=== PATIENT | male | born 1990 | race Caucasian/White ===

== ENCOUNTER 2018-02-12 10:03 | Day surgery (SDC) | payer OTHER ==
[2018-02-12] MEDS ORDERED: NS 1,000 ML IV ONE ×2 (10:35→10:54)
[2018-02-12 10:52] LABS: PLATELET COUNT 281 10^3/uL (150-400)
--- NOTE | 2018-02-12 10:54 | EDPHY ---
HPI/HX/ROS/PE/MDM Narrative: CHIEF COMPLAINT: "Stomach pain, fever, and nausea" HPI: The patient is a 27 y/o male arriving with his friend complaining of waxing and waning RLQ abdominal pain for the last 3 days. He initially noticed abdominal pain that seemed to worsen over the first 24 hours before subsiding slightly. He has associated subjective fever, chills, and nausea. He denies vomiting, diarrhea, dyspnea, chest pain, recent illness, or recent trauma. He had a double hernia repair as , but otherwise denies surgical history. His last PO intake was a smoothie and muffin at 08:00, 3 hours ago. REVIEW OF SYSTEMS: Aside from elements discussed in the HPI, a comprehensive 10-point review of systems was reviewed and is negative. PMH: Double hernia repair as infant. 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 Friend at bedside. PHYSICAL EXAM: General:Patient is alert, in no acute distress. ENT:Eyes are normal to inspection. ENT inspection normal. Neck: Normal inspection. Full range of motion. Respiratory:No respiratory distress. Breath sounds normal bilaterally. Cardiovascular: Regular rate and rhythm. Strong peripheral pulses. Normal cap refill. Abdomen:The abdomen has moderate RLQ tenderness to palpation. There are no peritoneal signs. Back: Normal to inspection. No tenderness to palpation. Skin: Normal color. No rash. Warm and dry. Extremities: Normal appearance. Full range of motion. Neuro: Oriented x3. Normal motor function. Normal sensory function. ED Course: This is a healthy 27 y/o male who presents with 3 days of waxing and waning RLQ abdominal pain with associated nausea and subjective fever. He has RLQ tenderness on exam and is hemodynamically stable. Presentation concerning for acute appendicitis. Plan for IV, labs, UA, and abdominal CT. 1L IV NS ordered. Patient declined pain and nausea medication. Labs unremarkable. Abdominal CT: acute appendicitis Consulted with Dr. Gottlieb, surgeon. He will assess patient in the ED. MDM: This patient presents with signs and symptoms of acute appendicitis, confirmed by CT. He will require surgical intervention. - Data Points Imaging: Discussed imaging studies w/ call center agent Radiologist, I viewed and interpreted images myself Laboratory Results: Laboratory Results 02/12/18 10:25 02/12/18 10:25 02/12/18 02/12/18 10:25 10:25 WBC 4.91 10^3/uL 10^3/uL (3.80-9.50) RBC 6.01 10^6/uL 10^6/uL (4.40-6.38) Hgb 16.9 g/dL g/dL (13.7-17.5) Hct 49.5 % % (40.0-51.0) MCV 82.4 fL fL (81.5-99.8) MCH 28.1 pg pg (27.9-34.1) MCHC 34.1 g/dL g/dL (32.4-36.7) RDW 13.5 % % (11.5-15.2) Plt Count 281 10^3/uL 10^3/uL (150-400) MPV 11.2 fL fL (8.7-11.7) Neut % (Auto) 50.7 % % (39.3-74.2) Lymph % (Auto) 36.7 % % (15.0-45.0) [place] % (Auto) 9.4 % % (4.5-13.0) Eos % (Auto) 1.6 % % (0.6-7.6) Baso % (Auto) 1.0 % % (0.3-1.7) Nucleat RBC Rel Count 0.0 % % (0.0-0.2) Absolute Neuts (auto) 2.49 10^3/uL 10^3/uL (1.70-6.50) Absolute Lymphs (auto) 1.80 10^3/uL 10^3/uL (1.00-3.00) Absolute Monos (auto) 0.46 10^3/uL 10^3/uL (0.30-0.80) Absolute Eos (auto) 0.08 10^3/uL 10^3/uL (0.03-0.40) Absolute Basos (auto) 0.05 10^3/uL 10^3/uL (0.02-0.10) Absolute Nucleated RBC 0.00 10^3/uL 10^3/uL (0-0.01) Immature Gran % 0.6 % % (0.0-1.1) Immature Gran # 0.03 10^3/uL 10^3/uL (0.00-0.10) Sodium 146 mEq/L H mEq/L (135-145) Potassium 4.1 mEq/L mEq/L (3.5-5.2) Chloride 103 mEq/L mEq/L (97-110) Carbon Dioxide 27 mEq/l mEq/l (22-31) Anion Gap 16 mEq/L mEq/L (8-16) BUN 14 mg/dL mg/dL (7-23) Creatinine 0.8 mg/dL mg/dL (0.7-1.3) Estimated GFR > 60 Glucose 81 mg/dL mg/dL (70-100) Calcium 9.7 mg/dL mg/dL (8.5-10.4) General Time Seen by Provider: 02/12/18 10:41 Initial Vital Signs: Initial Vital Signs Temperature (C) 36.7 C 02/12/18 10:05 Heart Rate 76 02/12/18 10:05 Respiratory Rate 16 02/12/18 10:05 Blood Pressure 120/77 02/12/18 10:05 O2 Sat (%) 96 02/12/18 10:05 O2 Delivery Mode Room Air O2 (L/minute) 6 Allergies/Adverse Reactions: No Known Allergies Allergy (Verified 10/30/13 12:06) Home Medications: Medication Instructions Recorded Albuterol [Proventil Inhaler HFA 1 - 2 puffs IH DAILY PRN 02/12/18 (*)] Hydrocodone/APAP 5/325 [[place] 1 tab PO Q4HRS PRN #20 tab 02/12/18 5/325 (*)] Ibuprofen [Motrin (*)] 600 mg PO Q8HRS #30 tab 02/12/18 Departure - Departure Disposition: [facility] Inpatient Acute Clinical Impression: Acute appendicitis Qualifiers: Acute appendicitis type: other Qualified Code(s): K35.89 - Other acute appendicitis Condition: Good Report Scribed for: Alvarado Garcia Report Scribed by: Fozia Gonzalez Date of Report: 02/12/18 Time of Report: 10:55 Physician Review and Approval Statement: Portions of this note were transcribed by an ED scribe. I personally performed the history, physical exam, and medical decision making; and confirm the accuracy of the information in the transcribed note.
[2018-02-12] MEDS ORDERED: IOPAMIDOL (ISOVUE-300) 100 ML BTL ONE (11:09)
--- NOTE | 2018-02-12 12:28 | PDGENHP ---
History and Physical - Chief Complaint abd pain - History of Present Illness 27 y/o male with 2 day history of RLQ pain, fever, chills and nausea. He came to the ED today and was seen by Dr. Garcia who suspected appendicitis and confirmed with a CT of the abdomen. History Information - Allergies/Home Medication List Allergies/Adverse Reactions: No Known Allergies Allergy (Verified 10/30/13 12:06) Home Medications: Albuterol [Proventil Inhaler HFA (*)] 1 - 2 puffs IH DAILY PRN 02/12/18 [Last Taken Unknown] I have personally reviewed and updated: family history, medical history, social history, surgical history - Past Medical History no pertinent PMH - Surgical History Reports: hernia repair (bilateral inguinal hernia repair as a child) - Social History Smoking Status: Never smoked Alcohol Use: Occasionally Drug Use: None Review of Systems Review of Systems: Constitutional: Reports: chills, fever Cardiac: Reports: no symptoms Respiratory: Reports: no symptoms Gastrointestinal: Reports: abdominal pain, nausea Genitourinary: Reports: no symptoms Physical Exam Physical Exam: Temp Pulse Resp BP Pulse Ox 36.7 C 76 16 120/77 96 02/12/18 10:05 02/12/18 10:05 02/12/18 10:05 02/12/18 10:05 02/12/18 10:05 Constitutional: no apparent distress Eyes: anicteric sclera, other Ears, Nose, Mouth, Throat: other (no adenopathy) Cardiovascular: regular rate and rhythym Respiratory: no respiratory distress, no rales or rhonchi, clear to auscultation Gastrointestinal: normoactive bowel sounds, tenderness (RLQ tenderness with guarding, +Rovsing's sign) Genitourinary: no bladder fullness Skin: warm Neurologic: AAOx3 Lab Data & Imaging Review 02/12/18 10:25 02/12/18 10:25 WBC 4.91 10^3/uL (3.80-9.50) 02/12/18 10:25 RBC 6.01 10^6/uL (4.40-6.38) 02/12/18 10:25 Hgb 16.9 g/dL (13.7-17.5) 02/12/18 10:25 Hct 49.5 % (40.0-51.0) 02/12/18 10:25 MCV 82.4 fL (81.5-99.8) 02/12/18 10:25 MCH 28.1 pg (27.9-34.1) 02/12/18 10:25 MCHC 34.1 g/dL (32.4-36.7) 02/12/18 10:25 RDW 13.5 % (11.5-15.2) 02/12/18 10:25 Plt Count 281 10^3/uL (150-400) 02/12/18 10:25 MPV 11.2 fL (8.7-11.7) 02/12/18 10:25 Neut % (Auto) 50.7 % (39.3-74.2) 02/12/18 10:25 Lymph % (Auto) 36.7 % (15.0-45.0) 02/12/18 10:25 [place] % (Auto) 9.4 % (4.5-13.0) 02/12/18 10:25 Eos % (Auto) 1.6 % (0.6-7.6) 02/12/18 10:25 Baso % (Auto) 1.0 % (0.3-1.7) 02/12/18 10:25 Nucleat RBC Rel Count 0.0 % (0.0-0.2) 02/12/18 10:25 Absolute Neuts (auto) 2.49 10^3/uL (1.70-6.50) 02/12/18 10:25 Absolute Lymphs (auto) 1.80 10^3/uL (1.00-3.00) 02/12/18 10:25 Absolute Monos (auto) 0.46 10^3/uL (0.30-0.80) 02/12/18 10:25 Absolute Eos (auto) 0.08 10^3/uL (0.03-0.40) 02/12/18 10:25 Absolute Basos (auto) 0.05 10^3/uL (0.02-0.10) 02/12/18 10:25 Absolute Nucleated RBC 0.00 10^3/uL (0-0.01) 02/12/18 10:25 Immature Gran % 0.6 % (0.0-1.1) 02/12/18 10:25 Immature Gran # 0.03 10^3/uL (0.00-0.10) 02/12/18 10:25 Sodium 146 mEq/L (135-145) H 02/12/18 10:25 Potassium 4.1 mEq/L (3.5-5.2) 02/12/18 10:25 Chloride 103 mEq/L (97-110) 02/12/18 10:25 Carbon Dioxide 27 mEq/l (22-31) 02/12/18 10:25 Anion Gap 16 mEq/L (8-16) 02/12/18 10:25 BUN 14 mg/dL (7-23) 02/12/18 10:25 Creatinine 0.8 mg/dL (0.7-1.3) 02/12/18 10:25 Estimated GFR > 60 02/12/18 10:25 Glucose 81 mg/dL (70-100) 02/12/18 10:25 Calcium 9.7 mg/dL (8.5-10.4) 02/12/18 10:25 Urine Color PALE YELLOW 02/12/18 11:50 Urine Appearance CLEAR 02/12/18 11:50 Urine pH 7.0 (5.0-7.5) 02/12/18 11:50 Ur Specific Martha 1.018 (1.002-1.030) 02/12/18 11:50 Urine Protein NEGATIVE (NEGATIVE) 02/12/18 11:50 Urine Ketones NEGATIVE (NEGATIVE) 02/12/18 11:50 Urine Blood NEGATIVE (NEGATIVE) 02/12/18 11:50 Urine Nitrate NEGATIVE (NEGATIVE) 02/12/18 11:50 Urine Bilirubin NEGATIVE (NEGATIVE) 02/12/18 11:50 Urine Urobilinogen NEGATIVE EU (0.2-1.0) 02/12/18 11:50 Ur Leukocyte Esterase NEGATIVE (NEGATIVE) 02/12/18 11:50 Urine Glucose NEGATIVE (NEGATIVE) 02/12/18 11:50 Assessment & Plan Assessment: Acute appendicitis (Acute) Plan: We discussed laparoscopic appendectomy and the alternative of antibiotic treatment alone. I recommended appendectomy. We discussed the procedure, expected recovery and risks. He would like to proceed with appenectomy. Ertapenam 1 gm IVPB pre-op ordered
[2018-02-12] MEDS ORDERED: LR 1,000 ML IV SCH (12:30)
[2018-02-12] MEDS ORDERED: ERTAPENEM 1 GM VIAL ONE (12:30)
[2018-02-12] MEDS ORDERED: ERTAPENEM 1 GM VIAL IV SCH (12:30)
[2018-02-12] MEDS ORDERED: LR 1,000 ML IV ONE (12:58)
[2018-02-12] MEDS ORDERED: BUPIVACAINE 0.25% 30 ML SDV ONE (13:34)
[2018-02-12] MEDS ORDERED: MIDAZOLAM 2 MG/2 ML VIAL IVP ONE (13:41)
--- NOTE | 2018-02-12 13:41 | PDANEPAE ---
ANE History of Present Illness 27 yo for glen SEGUN Past Medical History - Cardiovascular History Hx Hypertension: No Hx Arrhythmias: No Hx Chest Pain: No Hx Coronary Artery / Peripheral Vascular Disease: No Hx CHF / Valvular Disease: No Hx Palpitations: No - Pulmonary History Hx COPD: No Hx Recent Upper Respiratory Infection: No Hx Oxygen in Use at Home: No Hx Sleep Apnea: No - Endocrine History Hx Diabetes: No ANE Review of Systems Review of Systems: - Exercise capacity METS (RN): 4 METS ANE Patient History - Allergies Allergies/Adverse Reactions: No Known Allergies Allergy (Verified 10/30/13 12:06) - Home Medications Home medications: home medication list seen and reviewed Home Medications: Albuterol [Proventil Inhaler HFA (*)] 1 - 2 puffs IH DAILY PRN 02/12/18 [Last Taken Unknown] - NPO status NPO Since - Liquids (Date): 02/12/18 NPO Since - Liquids (Time): 09:00 NPO Since - Solids (Date): 02/13/16 NPO Since - Solids (Time): 08:00 - Anes Hx Anes Hx: no prior problems - Smoking Hx Smoking Status: Never smoked - Alcohol Use Alcohol Use: Occasionally ANE Labs/Vital Signs - Labs Result Diagrams: 02/12/18 10:25 02/12/18 10:25 - Vital Signs Blood Pressure: 100/60 Heart Rate: 74 Respiratory Rate: 18 O2 Sat (%): 97 Height: 6 ft 1 in Weight: 72.575 kg ANE Physical Exam - Airway Mallampati Score: Class 2 Mouth exam: normal dental/mouth exam - Pulmonary Pulmonary: no respiratory distress - Cardiovascular Cardiovascular: regular rate and rhythym - ASA Status ASA Status: I ANE Anesthesia Plan Anesthesia Plan: general endotracheal anesthesia
[2018-02-12] MEDS ORDERED: PROPOFOL/EMULSION 500 MG/50 ML BOTTLE IV ONE (13:48)
[2018-02-12] MEDS ORDERED: REMIFENTANIL HCL 1 MG VIAL ONE (13:48)
[2018-02-12] MEDS ORDERED: fentaNYL 100 MCG/2 ML INJ ONE ×2 (13:48→15:11)
[2018-02-12] MEDS ORDERED: METOCLOPRAMIDE 10 MG/2 ML VIAL IVP PRN (15:04)
[2018-02-12] MEDS ORDERED: HYDROCODONE/APAP 5/325 TAB PO PRN (15:04)
--- NOTE | 2018-02-12 15:04 | POSTOPPROG ---
Post Op Note Date of Operation: 02/12/18 Surgeon: Braden Gottlieb (, FACS) Anesthesiologist: Liborio Clifton MD Anesthesia: GET(General Endotracheal) Pre-op Diagnosis: appendicitis Post-op Diagnosis: same Procedure: lap appendectomy Findings: acute appendicitis Inf/Abcess present in the surg proc area at time of surgery?: Yes Depth: Organ Space EBL: Minimal (5 ml) Complications: none\ Specimen(s): appendix
[2018-02-12] MEDS ORDERED: ALBUTEROL 60 PUFFS/8 GM MDI IH PRN (15:06)
[2018-02-12] MEDS ORDERED: ONDANSETRON 4 MG/2 ML VIAL IVP PRN (15:07)
[2018-02-12] MEDS ORDERED: HYDROmorphONE/DILAUDID 2 MG/ML INJ IVP PRN (15:07)
[2018-02-12] MEDS ORDERED: NALOXONE HCL 0.4 MG/ML INJ IVP PRN (15:07)
--- NOTE | 2018-02-12 15:08 | POSTANESTH ---
Post Anesthetic Evaluation Cardiovascular Status: Normal, Stable Respiratory Status: Normal, Stable Level of Consciousness/Mental Status: Can Participate in Eval Pain Control: Adequate, Prn Tx Ordered Nausea/Vomiting Control: Adequate, Prn Tx Ordered Complications Possibly Related to Anesthesia: None Noted
[2018-02-12] MEDS: fentaNYL 100 MCG/2 ML INJ IVP PRN ×3 (15:14→15:46)
[2018-02-12 15:50] VITALS: TEMP 98.4
[2018-02-12 17:08] VITALS: BP 107/68
[2018-02-12 17:10] VITALS: PULSE 86; RESP 18; O2SAT 94
--- NOTE | 2018-02-12 17:44 | GOP ---
[f rep st] OPERATIVE REPORT DATE OF OPERATION: 02/12/2018 SURGEON: Braden Gottlieb MD, FACS ANESTHESIA: General endotracheal. ANESTHESIOLOGIST: Liborio Houston MD PREOPERATIVE DIAGNOSIS: Acute appendicitis. POSTOPERATIVE DIAGNOSIS: Acute appendicitis. PROCEDURE PERFORMED: Laparoscopic appendectomy. FINDINGS: Early acute appendicitis. No evidence of perforation or gangrene. ESTIMATED BLOOD LOSS: 5 mL. DESCRIPTION OF PROCEDURE: After informed consent was obtained, the patient was brought to the operating room and placed under general anesthesia. The lower abdomen was prepped and draped in usual fashion. Before proceeding, a time-out and identification of the patient was performed. 0.25% Marcaine was used to infiltrate all incision sites. A longitudinal incision was made through the base of the umbilicus and carried through skin and subcutaneous tissues. Ventral traction was applied to the abdominal wall with a penetrating towel clamp and a Veress needle was introduced into the peritoneal cavity. Position was confirmed by saline infusion. A pneumoperitoneum was then established with CO2 gas to a pressure of 15 mmHg. The Veress needle was withdrawn and replaced with a 5 mm bladeless trocar. A 30 -degree, 5 mm scope was introduced and the peritoneal cavity was visualized. There were no anterior abdominal wall adhesions. An additional 5 mm port was placed in the suprapubic position and a 12 mm port was established in the left lower quadrant, both under direct visualization. The appendix was mobilized and grasped at the base with an atraumatic forceps. The mesoappendix was divided with the Harmonic Scalpel and the appendix from the cecum with a single firing of the EMILY stapler. The appendix was retrieved through the left lower quadrant port site using an Endopouch. Hemostasis at the operative site appeared controlled. There was no need for irrigation. The left lower quadrant port site was closed with a single transfascial closure needle and 0 Vicryl suture. Subcutaneous tissues were approximated with 3-0 Monocryl suture. Skin of all incisions was closed with 4-0 Monocryl suture in a subcuticular fashion. Topical Dermabond was applied. Patient was returned extubated to the recovery room in satisfactory condition. Needle, sponge, and instrument counts were correct. COMPLICATIONS: None. /[id number]/MODL MTDD
[2018-02-12] MEDS ORDERED: IBUPROFEN 600 MG TAB PO SCH (22:00)
== END 2018-02-12 17:30 | disposition home or self-care (01) ==
LOC: UNDOADMOB 11:40 → FSGY 12:41 → F3E 12:55 → FSGY 17:30
PROVIDERS: ATTEND Surgery
PROC: 0DTJ4ZZ Resection of Appendix, Percutaneous Endoscopic Approach (ICD-10-PCS; principal; 2018-02-12 14:00)
DX: K35.80 Unspecified acute appendicitis (principal)
CPT/HCPCS: 96374; J1335; J2250; J2704; J3010; Q9967

== ENCOUNTER → 2018-06-10 | Outpatient (CLI) | payer OTHER | LOC: FIMAGING 14:05 | PROVIDERS: ATTEND Internal Medicine | DX: R10.12 Left upper quadrant pain (principal) ==